=== PATIENT | female | born 1985 | race Caucasian/White ===

== ENCOUNTER → 2016-08-04 | Outpatient (REF) | payer OTHER | LOC: M LAB REF 13:16 | PROVIDERS: ATTEND Obstetrics & Gynecology | DX: O30.042 Twin pregnancy, dichorionic/diamniotic, second trimester (principal); Z36 Encounter for antenatal screening of mother; Z3A.14 14 weeks gestation of pregnancy ==

== ENCOUNTER → 2016-10-31 | Outpatient (CLI) | payer OTHER ==
[2016-10-31 19:35] LABS: MEAN CORPUSCULAR HEMOGLOBIN 32.7 pg (27.0-33.0); MEAN CORPUSCULAR HGB CONC 33.9 g/dl (32.0-36.5); MEAN CORPUSCULAR VOLUME 96.3 fl (80.0-96.0); RED CELL DISTRIBUTION WIDTH 12.8 % (11.5-14.5)
== END ==
LOC: M LAB 15:02
PROVIDERS: ATTEND Obstetrics & Gynecology
DX: Z36 Encounter for antenatal screening of mother (principal); Z3A.00 Weeks of gestation of pregnancy not specified

== ENCOUNTER → 2016-11-11 | Outpatient (REF) | payer OTHER ==
[2016-11-11 12:54] LABS: MEAN CORPUSCULAR HEMOGLOBIN 32.5 pg (27.0-33.0); MEAN CORPUSCULAR HGB CONC 33.9 g/dl (32.0-36.5); MEAN CORPUSCULAR VOLUME 95.9 fl (80.0-96.0); RED CELL DISTRIBUTION WIDTH 13.3 % (11.5-14.5)
== END ==
LOC: M LAB REF 12:22
PROVIDERS: ATTEND Obstetrics & Gynecology
DX: D69.6 Thrombocytopenia, unspecified (principal)

== ENCOUNTER → 2016-12-01 | Outpatient (REF) | payer OTHER ==
[2016-12-01 16:42] LABS: MEAN CORPUSCULAR HGB CONC 34.1 g/dl (32.0-36.5); MEAN CORPUSCULAR VOLUME 96.6 fl (80.0-96.0); RED CELL DISTRIBUTION WIDTH 13.3 % (11.5-14.5); WHITE BLOOD COUNT 11.8 K/mm3 (4.0-10.0)
== END ==
LOC: M LAB REF 16:12
PROVIDERS: ATTEND Obstetrics & Gynecology
DX: O30.043 Twin pregnancy, dichorionic/diamniotic, third trimester (principal); O99.89 Other specified diseases and conditions complicating pregnancy, childbirth and the puerperium; D69.6 Thrombocytopenia, unspecified; Z3A.00 Weeks of gestation of pregnancy not specified

== ENCOUNTER → 2017-01-01 | Outpatient (CLI) | payer OTHER ==
[~2017-01-01] VITALS: Ht 157.5 cm; Wt 90.0 kg
[~2017-01-01] MED LIST: ANTA500C PO; DOCU100T8 PO; IBUP-1114 PO; IRON50TA PO; PRENTAB55 PO
[2017-01-01 20:01] VITALS: BP 120/76
--- NOTE | 2017-01-01 21:40 | REPUSA ---
OBSTETRICAL ULTRASOUND INDICATION: OB screening, decreased movement. FINDINGS: A twin live intrauterine gestation was identified. Diamniotic, dichorionic gestation is not ed. Amniotic fluid index is grossly within normal limits. Normal breathing movements, mo vements, and tone are appreciated within both pregnancies. Umbilical artery resistive index is within normal limits bilaterally. A fundal placenta is noted, grade 1 for both pregnancies. There i s no evidence of placenta previa. Cervix is closed. Twin A .The fetus was in a vertex lie. Estimated weight is 2858 g. The cranium and ventricles are unremarkable. Posterior fossa is within normal limits. The spine demonstrates normal contour and appearance. The orbits, facial anatomy, nasal anatomy, and lip s are normal in appearance. All 4 extremities appear grossly unremarkable. A four-chamber heart is ap preciated. The stomach, kidneys, bladder, and diaphragm are intact. A three-vessel umbilical co rd with normal cord insertion is appreciated. BIOMETRIC MEASUREMENTS TWIN A BPD 8.8 cm HC 32.1 cm AC 32.7 cm FL 56.9 cm Twin B The fetus was in a vertex lie. Estimated weight is 2953 g. The cranium and ventricles are unremarkable. Posterior fossa is within normal limits. The spine demonstrates normal contour and appearance. The orbits, facial anatomy, nasal anatomy, and lip s are normal in appearance. All 4 extremities appear grossly unremarkable. A four-chamber heart is ap preciated. The stomach, kidneys, bladder, and diaphragm are intact. A three-vessel umbilical co rd with normal cord insertion is appreciated. BIOMETRIC MEASUREMENTS TWIN A BPD 8.8 cm HC 32.5 cm AC 33.4 cm FL 6.8 cm IMPRESSION: 1. Diamniotic, dichorionic twin pregnancies as described. 2. Fetus A measures 36 weeks 1 day, demonstrating appropriate growth. 3. Fetus B measures 36 weeks, demonstrate appropriate growth. 4. anatomy is within normal limits bilaterally. 5. Biophysical profile of both fetuses measures 02/07.
== END ==
LOC: M LDO 19:52
PROVIDERS: ATTEND Advanced Practice Midwife
DX: O36.8130 Decreased fetal movements, third trimester, not applicable or unspecified (principal); O30.043 Twin pregnancy, dichorionic/diamniotic, third trimester; Z3A.36 36 weeks gestation of pregnancy

== ENCOUNTER 2017-01-06 13:22 | Inpatient (IN) | payer OTHER ==
[~2017-01-06] VITALS: Ht 157.5 cm; Wt 89.0 kg
[2017-01-06] VITALS (29 sets, daily range): BP systolic 91–124; BP diastolic 51–74
[~2017-01-06 13:22] MED LIST changes: -IBUP-1114 PO
[2017-01-06] MEDS ORDERED: LACTATED RINGER'S 1000 ML IV STA (13:34)
[2017-01-06] MEDS ORDERED: LR 1,000 ML IV SCH (13:34)
[2017-01-06 14:28] LABS: MEAN CORPUSCULAR HEMOGLOBIN 32.8 pg (27.0-33.0); MEAN CORPUSCULAR HGB CONC 34.8 g/dl (32.0-36.5); MEAN CORPUSCULAR VOLUME 94.3 fl (80.0-96.0); WHITE BLOOD COUNT 10.7 K/mm3 (4.0-10.0)
[2017-01-06 14:51] LABS: ALT/SGPT 21 U/L (12-78); AST/SGOT 32 U/L (15-37); BILIRUBIN,TOTAL 0.4 MG/DL (0.2-1.0); CREATININE FOR GFR 1.06 MG/DL (0.55-1.02); GLOMERULAR FILTRATION RATE > 60.0 (>60); URIC ACID 5.5 MG/DL (2.6-6.0)
[2017-01-06] MEDS ORDERED: FENTANYL 2MCG/ML ROPIVACAINE 0.2% IN 0.9% NACL 200ML IVBAG As Ordered ONE (15:22)
[2017-01-06 15:52] LABS: MEAN CORPUSCULAR HEMOGLOBIN 33.2 pg (27.0-33.0); MEAN CORPUSCULAR HGB CONC 35.1 g/dl (32.0-36.5); MEAN CORPUSCULAR VOLUME 94.6 fl (80.0-96.0); RED CELL DISTRIBUTION WIDTH 13.1 % (11.5-14.5); WHITE BLOOD COUNT 12.4 K/mm3 (4.0-10.0)
[2017-01-06] MEDS ORDERED: EPIDURAL COMMENT XX SCH (17:00)
[2017-01-06] MEDS ORDERED: LACTATED RINGER'S 1000 ML IV PRN (17:00)
[2017-01-06] MEDS ORDERED: FENTANYL/ROPIVACAINE/NACL BAG 200 ML EPIDURAL SCH (17:00)
[2017-01-06] MEDS ORDERED: REFRIGERATOR IV KEYS XX PRN (17:00)
[2017-01-06] MEDS ORDERED: ONDANSETRON 4MG/2ML VIAL (J2405) IV PRN ×4 (17:00→20:30)
[2017-01-06] MEDS ORDERED: diphenhydrAMINE INJ 50MG/ML VIAL (J1200) IV PRN (17:00)
[2017-01-06] MEDS ORDERED: EPIDURAL/PCA KEYS XX PRN (17:00)
[2017-01-06] MEDS ORDERED: NALOXONE INJ 0.4 MG/1 ML VIAL (J2310) IV PRN ×3 (17:00→19:20)
[2017-01-06] MEDS: ePHEDrine SULFATE 25 MG/5 ML(5MG/ML) SYRINGE IV PRN ×3 (17:04→17:26)
[2017-01-06] MEDS ORDERED: OXYTOCIN DRIP 30 UNITS in APPROPRIATE DILUENT 1 EA IV SCH (17:30)
[2017-01-06] MEDS ORDERED: ceFAZolin 1GM INJ (J0690) As Ordered ONE ×2 (19:13→19:36)
[2017-01-06] MEDS ORDERED: fentaNYL 100 MCG/2 ML INJECTION (J3010) As Ordered ONE (19:18)
[2017-01-06] MEDS ORDERED: EPINEPHrine INJ 1 MG/ML 1ML AMP As Ordered ONE (19:18)
[2017-01-06] MEDS ORDERED: LIDOCAINE PRES-FREE 2% 10ML AMP As Ordered ONE (19:18)
[2017-01-06] MEDS ORDERED: METOCLOPRAMIDE INJ 10MG/2ML VIAL (J2765) IV PRN (19:20)
[2017-01-06] MEDS ORDERED: NALBUPHINE HCL 10 MG/ML AMP (J2300) IV PRN (19:20)
[2017-01-06] MEDS ORDERED: KETOROLAC 60 MG/2 ML VIAL (J1885) As Ordered ONE (19:22)
[2017-01-06] MEDS ORDERED: ONDANSETRON 4MG/2ML VIAL (J2405) As Ordered ONE (19:22)
[2017-01-06] MEDS ORDERED: OXYTOCIN 30 UNITS IN 0.9% NaCl 500ML IV BAG (J2590) As Ordered ONE (19:42)
[2017-01-06] MEDS: LR 1,000 ML IV SCH (20:19)
[2017-01-06 20:20] LABS: CORD GAS ABE A -4.6; CORD GAS HCO3 A 22.5 MEQ/L; CORD GAS O2 SAT A 34.6 %; CORD GAS PCO2 A 49.6 mmHg; CORD GAS PH A 7.275 UNITS; CORD GAS PO2 A 19.7 mmHg; CORD GAS SBC A 19.4 MEQ/L
[2017-01-06 20:22] LABS: CORD GAS ABE V -4.5; CORD GAS HCO3 V 20.5 MEQ/L; CORD GAS O2 SAT V 76.1 %; CORD GAS PCO2 V 37.7 mmHg; CORD GAS PH V 7.353 UNITS; CORD GAS SBC V 20.3 MEQ/L; CORD GAS TCO2 V 21.6 MEQ/L
[2017-01-06] MEDS ORDERED: NORCO, ANEXSIA 5/325MG TABLET (HYDROcodone/ACETAMINOPHEN) PO PRN ×2 (20:30)
[2017-01-06] MEDS ORDERED: MEPERIDINE INJ 25 MG/ML VIAL (J2175) IV PRN (20:30)
[2017-01-06] MEDS ORDERED: MOM 30ML SUSPENSION UDC PO PRN (20:30)
[2017-01-06] MEDS ORDERED: RHOGAM 300 MCG (1500 IU) INJ (J2790) IM SCH (20:30)
[2017-01-06] MEDS ORDERED: METHYLERGONOVINE MALEATE 0.2 MG/ML VIAL (J2210) IM PRN (20:30)
[2017-01-06] MEDS ORDERED: fentaNYL 100 MCG/2 ML INJECTION (J3010) IV PRN (20:30)
[2017-01-06] MEDS ORDERED: MEASLES,MUMPS,RUBELLA VACCINE INJ (MMR-II) (90707) SC SCH (20:30)
--- NOTE | 2017-01-06 20:31 | REP ---
Clinical: No preoperative count. Technique: Single portable view of the lower abdomen and pelvis. Findings: No obvious retained foreign body is appreciated. Bowel gas pattern is nonspecific. Presumed Abreu catheter in the bladder. Skeletal structures are intact. Impression: No significant residual foreign body. Signed by Juan M Ray MD 01/06/2017 08:22 P
[2017-01-06 21:04] LABS: MEAN CORPUSCULAR HGB CONC 34.5 g/dl (32.0-36.5); MEAN CORPUSCULAR VOLUME 95.6 fl (80.0-96.0); RED CELL DISTRIBUTION WIDTH 12.9 % (11.5-14.5); WHITE BLOOD COUNT 15.6 K/mm3 (4.0-10.0)
[2017-01-06] MEDS: DOCUSATE SODIUM 100 MG CAP PO SCH (23:22)
[2017-01-07] VITALS (8 sets, daily range): BP systolic 99–124; BP diastolic 53–74
[2017-01-07] MEDS: ceFAZolin SOD 1 GM in D5W MINI-BAG PLUS 50 ML IV SCH ×2 (02:26→11:29)
[2017-01-07] MEDS: LR 1,000 ML IV SCH (04:19)
[2017-01-07] MEDS ORDERED: NS 1,000 ML IV SCH (06:07)
[2017-01-07] MEDS ORDERED: NALOXONE INJ 0.4 MG/1 ML VIAL (J2310) IV PRN (06:15)
[2017-01-07] MEDS ORDERED: EPIDURAL/PCA KEYS XX PRN (06:15)
[2017-01-07] MEDS ORDERED: MORPHINE 1MG/ML IN 0.9% NACL 100ML IV BAG IV PRN (06:15)
[2017-01-07] MEDS ORDERED: diphenhydrAMINE INJ 50MG/ML VIAL (J1200) IV PRN (06:15)
[2017-01-07] MEDS ORDERED: ONDANSETRON 4MG/2ML VIAL (J2405) IV PRN (06:15)
[2017-01-07] MEDS ORDERED: MORPHINE PRES-FREE INJ 10 MG/10 ML VIAL (J2274) As Ordered ONE (06:30)
[2017-01-07] MEDS: IBUPROFEN 800 MG TAB PO SCH ×3 (06:37→20:56)
[2017-01-07 06:52] LABS: MEAN CORPUSCULAR HEMOGLOBIN 33.4 pg (27.0-33.0); MEAN CORPUSCULAR HGB CONC 35.3 g/dl (32.0-36.5); MEAN CORPUSCULAR VOLUME 94.7 fl (80.0-96.0); WHITE BLOOD COUNT 10.5 K/mm3 (4.0-10.0)
--- NOTE | 2017-01-07 08:25 | HPE ---
DATE OF ADMISSION: 01/06/2017 Tata is a 31-year-old female, 2, para 1-0-0-1, with an estimated date of confinement (EDC) of 01/29/2017, estimated gestational age (EGA) 37 weeks' gestation, twins. The patient originally had triplets with one demise earlier on the . In the office today with complaints of contractions. Upon evaluation, she was found to be in labor. At this point a decision was made for admission. Her vaginal examination on admission was 4 cm, 80%, fetus at -2 station in vertex position. The twin B had an unstable lie. Ultrasound done last week shows both fetus at approximately 6 pounds each, within normal limits. laboratory blood type is O positive, rubella immune, hepatitis negative, HIV negative, gonorrhea culture (GC) and chlamydia negative. 1-hour sugar testing was within normal limits. Her group B streptococcus (GBS) is negative. The patient's was complicated by -induced thrombocytopenia. Her platelets went as low as 102 with her most recent platelet being 112. MEDICAL HISTORY: Significant for: 1. Polycystic ovarian syndrome (PCOS). 2. -induced thrombocytopenia. SOCIAL HISTORY: She is . Denies any alcohol, drugs, or cigarette smoking. REVIEW OF SYSTEMS: Unremarkable. FAMILY HISTORY: Significant for pancreatic cancer. MEDICATIONS: - vitamins ALLERGIES: No known drug allergies. PHYSICAL EXAMINATION: HEENT: Grossly within normal limits. Abdomen: Soft, nontender, nondistended. Extremities: No clubbing, cyanosis, or edema. Vaginal examination is 4 cm, 80%, fetus at -3 station in vertex position in unstable lie, currently in an oblique position. The tracing reviewed. Category 1 tracing for both twins. Contractions every 3- 4 minutes. PLATELETS on admission 87. ASSESSMENT: 1. Twin gestation dichorionic-diamniotic (di-di) at 37 weeks in active labor. 2. -induced thrombocytopenia. 3. Vertex with B with an unstable lie, currently in an oblique position. PLAN: Admit the patient to labor and delivery. Routine laboratories sent. The patient and her counseled extensively. Risks and benefits of vaginal delivery versus section discussed. At this point, given that she is a multiparous and the first twin is vertex, will attempt a vaginal delivery with potential external version of the first of the second twin if needed. Pain management also discussed. The patient opted for an epidural. Will consult anesthesia to see if she is a candidate for an epidural. HAIEDR
[2017-01-07] MEDS: FERROUS SULFATE 325MG TAB PO SCH (09:00)
[2017-01-07] MEDS: DOCUSATE SODIUM 100 MG CAP PO SCH ×2 (09:00→20:55)
[2017-01-07] MEDS: PRENATAL VITAMINS CHEWABLE TABLET PO SCH (09:00)
--- NOTE | 2017-01-07 13:43 | RO ---
DATE OF PROCEDURE: 01/06/2017 This report is also combined with a delivery note. Tata is a 31-year-old female with triplet gestation that was reduced to a twin gestation earlier on. She presented to labor and delivery in active labor. She progressed to fully dilated, was brought to the operating room with a double setup for delivery of the fetus. She delivered twin A in left occiput anterior position with a nuchal cord times one, scores of 8 and 9, weight 6 pounds 1 ounce. The perineum was found to be intact at that point. Twin B was ruptured with bradycardia down to 59 beats per minute. After placement of an internal monitor, which could not get the heartbeat up, there was noted to have a cord prolapse with a true knot and a right-hand presentation. At this point, a decision was made to proceed with an emergent section. PREOPERATIVE DIAGNOSES: 1. Twin gestation at 37 weeks. 2. Non-reassuring heart rate tracing of twin B with bradycardia after the delivery of twin A. 3. Cord prolapse of twin B, true knot in twin B cord, with a right-hand presentation. POSTOPERATIVE DIAGNOSES: 1. Twin gestation at 37 weeks. 2. Non-reassuring heart rate tracing of twin B with bradycardia after the delivery of twin A. 3. Cord prolapse of twin B, true knot in twin B cord, with a right-hand presentation. PROCEDURE: Emergent primary section via Pfannenstiel incision. SURGEON: Wali Sanders DO DESTINATION COORDINATOR: ANESTHESIA: Epidural. COMPLICATIONS: None. ESTIMATED BLOOD LOSS: 700 mL. FINDINGS: Twin B with a true knot on the cord, scores of 3, 9 and 9. weight 6 pounds 7 ounces. Given the emergency nature of the delivery, we were unable to get cord blood and cord gas. This was taken care of by Dr. Flores, our supervisor tellers. DESCRIPTION OF PROCEDURE: Delivery of twin A and noticing the bradycardia, the patient was transferred immediately to the operating table, Betadine splash was done and an emergent section was performed. With the first knife a skin incision was made. This was carried down to the fascia. Fascia was incised and muscles in a midline fashion. The abdominal cavity entered bluntly. At this point, a low-transverse incision was made. Infant was delivered in an atraumatic fashion. The cord clamped and cut. Infant was handed over to the waiting supervisor tellers. At this point, the placentas were delivered and the incision was then closed using #0 Vicryl in two separate segments. Copiously irrigated with normal saline and suctioned out. Attention was turned to the peritoneum, which was closed in a running fashion using #2-0 Vicryl. Fascia closed in two separate segments of #0 Vicryl suture and the skin was reapproximated in subcuticular fashion using #3-0 Vicryl on a David. A flat plate of the pelvis was done as we were not able to do an initial count. The x-ray was read as within normal limits. No evidence of any instruments left behind. At this point, the patient was then transferred to the recovery room in stable condition. 2 grams of Ancef was given prior to the section. She also received a dose of Methergine in the operating room as well as a Pitocin drip.
[2017-01-08] MEDS: IBUPROFEN 800 MG TAB PO SCH ×3 (04:27→20:09)
[2017-01-08 06:13] VITALS: BP 100/57
[2017-01-08 06:46] LABS: MEAN CORPUSCULAR HEMOGLOBIN 33.3 pg (27.0-33.0); MEAN CORPUSCULAR HGB CONC 34.7 g/dl (32.0-36.5); RED CELL DISTRIBUTION WIDTH 13.1 % (11.5-14.5); WHITE BLOOD COUNT 9.6 K/mm3 (4.0-10.0)
[2017-01-08] MEDS: FERROUS SULFATE 325MG TAB PO SCH (08:52)
[2017-01-08] MEDS: DOCUSATE SODIUM 100 MG CAP PO SCH ×2 (08:52→20:08)
[2017-01-08] MEDS: PRENATAL VITAMINS CHEWABLE TABLET PO SCH (08:52)
[2017-01-08] MEDS ORDERED: PERCOCET 5MG/325MG TAB PO PRN (09:15)
[2017-01-08] MEDS: PERCOCET 5MG/325MG TAB PO PRN ×3 (10:15→23:38)
[2017-01-08 18:00] VITALS: BP 121/63
[2017-01-09] MEDS: IBUPROFEN 800 MG TAB PO SCH (04:20)
[2017-01-09] MEDS: PERCOCET 5MG/325MG TAB PO PRN (05:33)
[2017-01-09 06:12] VITALS: BP 112/54
[2017-01-09] MEDS: FERROUS SULFATE 325MG TAB PO SCH (09:23)
[2017-01-09] MEDS: DOCUSATE SODIUM 100 MG CAP PO SCH (09:23)
[2017-01-09] MEDS: PRENATAL VITAMINS CHEWABLE TABLET PO SCH (09:23)
[2017-01-09] MEDS ORDERED: IBUP-1114 PO (09:54)
--- NOTE | 2017-01-19 17:19 | DS.PDOC ---
Discharge Summary General Date of Admission Jan 06, 2017 at 13:22 Date of Discharge January 09 Attending Physician: Wali Sanders DO Discharge Summary PROCEDURES PERFORMED DURING STAY: Primary low transverse section. ADMITTING DIAGNOSES: 1. Twin gestation, di/di at 37 weeks gestation. 2. -induced thrombocytopenia. 3. Twin A vertex, Twin B with unstable lie-currently Oblique. DISCHARGE DIAGNOSES: 1. Day 3 2. Day 3 postoperative COMPLICATIONS/CHIEF COMPLAINT: LABOR. HISTORY OF PRESENT ILLNESS: Patient is a 31 year-old female who is now a . She was admitted at 37 weeks gestation in active labor with twins. Di/ di twin gestation that were both cephalic at time of delivery. Twin B had been an unstable lie.The patient did have a first trimester demise of one fetus , as she initially had a triplet . The patient arrived to L&D in active labor. She delivered Twin A vaginally with no complications and Twin B descended with her arm/hand as the presenting part along with a cord prolapse and a true knot. A stat section was performed for Twin B. DISCHARGE MEDICATIONS: Please see below. ALLERGIES: Please see below. PHYSICAL EXAMINATION ON DISCHARGE: VITAL SIGNS: Please see below. GENERAL: A+Ox 3. RESPIRATORY EXAMINATION: Respirations regular. No use of accessory muscles. ABDOMINAL EXAMINATION: low transverse abdominal incision is approximated. No erythema or drainage present. PERINEUM: Scant dark red vaginal bleeding. EXTREMITIES: bilateral lower extremities with generalized edema. LABORATORY DATA: Please see below. ACTIVITY: As tolerated. DIET: Regular. DISCHARGE INSTRUCTIONS: 1. Discharge to home. 2. Education on mastitis, endometritis, hemorrhage, DVT, pulmonary embolism, s/sx of infection at the incisional site, pelvic rest, pain management , caring for incision, depression and psychosis. 3. Follow up in 2 weeks and 6 weeks . DISCHARGE CONDITION: Stable. Discharge Medications Scheduled Multivitamins/ ( 19) 1 Tab Tab, 1 TAB PO DAILY, (Reported) Scheduled PRN Ibuprofen (Ibuprofen) 400 Mg Tab, 800 MG PO Q8HP PRN for PAIN, (Reported) Allergies Coded Allergies: Bee Venom (Verified Allergy, Severe, SWELLING, 01/06/17) PORFIRIO RENE CNM Jan 16, 2017 20:55
== END 2017-01-09 11:50 | disposition home or self-care (01) | DRG 765 ==
LOC: M LDI 13:22 → M OBS 22:38
PROVIDERS: ADMIT Advanced Practice Midwife; ATTEND Advanced Practice Midwife
PROC: 10E0XZZ Delivery of Products of Conception, External Approach (ICD-10-PCS; 2017-01-06)
PROC: 10D00Z1 Extraction of Products of Conception, Low, Open Approach (ICD-10-PCS; principal; 2017-01-06 18:47)
DX: O30.043 Twin pregnancy, dichorionic/diamniotic, third trimester (principal); O99.12 Other diseases of the blood and blood-forming organs and certain disorders involving the immune mechanism complicating childbirth; Z37.2 Twins, both liveborn; Z3A.37 37 weeks gestation of pregnancy; O31.21 Continuing pregnancy after intrauterine death of one fetus or more, first trimester; D69.6 Thrombocytopenia, unspecified; Z79.899 Other long term (current) drug therapy; O76 Abnormality in fetal heart rate and rhythm complicating labor and delivery; O69.0XX2 Labor and delivery complicated by prolapse of cord, fetus 2; O64 Obstructed labor due to malposition and malpresentation of fetus; O69.2XX2 Labor and delivery complicated by other cord entanglement, with compression, fetus 2; Z87.891 Personal history of nicotine dependence

== ENCOUNTER → 2017-02-21 | Outpatient (REF) | payer OTHER ==
[~2017-02-21] MED LIST changes: +IBUP-1114 PO
[2017-02-21 14:24] LABS: BASO % 0.9 % (0.0-1.0); EOS # 0.2 K/mm3 (0.0-0.50); EOS % 3.2 % (0.0-3.0); LARGE UNSTAINED CELL # 0.1 K/mm3 (0.0-0.4); LARGE UNSTAINED CELL % 2.1 % (0.0-4.0); LYMPH # 1.9 K/mm3 (1.5-4.5); LYMPH % 33.2 % (24.0-44.0); MEAN CORPUSCULAR HEMOGLOBIN 31.4 pg (27.0-33.0); MEAN CORPUSCULAR VOLUME 95.1 fl (80.0-96.0); MONO # 0.4 K/mm3 (0.0-0.8); MONO % 7.6 % (0.0-5.0); NEUTROPHILS # 2.8 K/mm3 (1.8-7.7); NEUTROPHILS % 52.9 % (36.0-66.0); PLATELET COUNT, AUTOMATED 190 k/mm3 (150-450); RED CELL DISTRIBUTION WIDTH 11.8 % (11.5-14.5); WHITE BLOOD COUNT 5.4 K/mm3 (4.0-10.0)
[2017-02-21 15:03] LABS: LUTEINIZING HORMONE 12.1 mIU/mL
[2017-02-21 15:05] LABS: ESTRADIOL 24.5 PG/ML; FOLLICLE STIMULATING HORMONE 6.8 mIU/mL
[2017-02-21 15:22] LABS: ALBUMIN 3.8 GM/DL (3.2-5.2); ALBUMIN/GLOBULIN RATIO 1.15 (1.00-1.93); ALKALINE PHOSPHATASE 84 U/L (45-117); ALT/SGPT 34 U/L (12-78); ANION GAP 10 MEQ/L (8-16); AST/SGOT 29 U/L (15-37); BILIRUBIN,TOTAL 0.5 MG/DL (0.2-1.0); BLOOD UREA NITROGEN 16 MG/DL (7-18); CALCIUM LEVEL 8.8 MG/DL (8.5-10.1); CARBON DIOXIDE LEVEL 22 MEQ/L (21-32); CHLORIDE LEVEL 110 MEQ/L (98-107); FREE T4 0.92 NG/DL (0.76-1.46); GLOMERULAR FILTRATION RATE > 60.0 (>60); GLUCOSE, FASTING 85 MG/DL (70-105); POTASSIUM SERUM 4.6 MEQ/L (3.5-5.1); SODIUM LEVEL 142 MEQ/L (136-145); TOTAL PROTEIN 7.1 GM/DL (6.4-8.2)
[2017-02-23 14:13] LABS: ESTRONE SERUM 117 pg/mL (.)
== END ==
LOC: M LAB REF 13:47
PROVIDERS: ATTEND Obstetrics & Gynecology
DX: N95.9 Unspecified menopausal and perimenopausal disorder (principal)

== ENCOUNTER → 2021-01-26 | Outpatient (CLI) | payer OTHER ==
[~2021-01-26] MED LIST changes: -ANTA500C PO; +CALC1CHW3 PO
[2021-01-26 13:31] LABS: HEMATOCRIT 39.5 % (36.0-47.0); MEAN CORPUSCULAR HEMOGLOBIN 30.4 pg (27.0-33.0); MEAN CORPUSCULAR HGB CONC 32.9 g/dl (32.0-36.5); MEAN CORPUSCULAR VOLUME 92.3 fl (80.0-96.0); RED BLOOD COUNT 4.28 10^6/uL (4.00-5.40); WHITE BLOOD COUNT 7.9 10^3/uL (4.0-10.0)
[2021-01-26 13:32] LABS: PLATELET COUNT, AUTOMATED 184 10^3/uL (150-450)
[2021-01-26 15:01] LABS: HCG, SERUM QUANTITATIVE 11537 MIU/ML; HEPATITIS B SURFACE ANTIGEN NEGATIVE (NEGATIVE); HEPATITIS C VIRUS ABY INDEX 0.1 INDEX (<0.8); HIV 1&2 SCREEN CENTAUR NEGATIVE (NEGATIVE)
== END ==
LOC: M LAB 12:39
PROVIDERS: ATTEND Obstetrics & Gynecology
DX: Z32.01 Encounter for pregnancy test, result positive (principal)

== ENCOUNTER 2021-02-01 17:48 | Emergency (ER) | payer OTHER ==
[~2021-02-01] VITALS: Ht 157.5 cm; Wt 66.9 kg
[2021-02-01 17:50] VITALS: BP 129/69
[2021-02-01] MEDS ORDERED: LEXA1TAB PO (19:20)
== END 2021-02-02 00:27 | disposition left against medical advice (07) ==
LOC: M ED 17:48
DX: Z53.21 Procedure and treatment not carried out due to patient leaving prior to being seen by health care provider (principal)

== ENCOUNTER → 2021-02-09 | Outpatient (REF) | payer OTHER ==
[~2021-02-09] MED LIST changes: +LEXA1TAB PO
== END ==
LOC: M LAB REF 16:45
PROVIDERS: ATTEND Obstetrics & Gynecology
DX: O02.1 Missed abortion (principal)

== ENCOUNTER → 2022-06-03 | Outpatient (CLI) | payer OTHER ==
[2022-06-03 17:35] LABS: BASO # 0.1 10^3/uL (0.0-0.2); BASO % 0.7 % (0.0-1.0); EOS # 0.2 10^3/uL (0.0-0.5); EOS % 2.5 % (0.0-3.0); HEMATOCRIT 39.8 % (36.0-47.0); HEMOGLOBIN 12.7 g/dl (12.0-15.5); LYMPH # 2.6 10^3/uL (1.5-5.0); LYMPH % 36.6 % (24.0-44.0); MEAN CORPUSCULAR HEMOGLOBIN 29.5 pg (27.0-33.0); MEAN CORPUSCULAR HGB CONC 31.9 g/dl (32.0-36.5); MEAN CORPUSCULAR VOLUME 92.3 fl (80.0-96.0); MONO # 0.8 10^3/uL (0.0-0.8); MONO % 10.5 % (2.0-8.0); NEUTROPHILS # 3.6 10^3/uL (1.5-8.5); NEUTROPHILS % 49.4 % (36.0-66.0); PLATELET COUNT, AUTOMATED 192 10^3/uL (150-450); RED BLOOD COUNT 4.31 10^6/uL (4.00-5.40); WHITE BLOOD COUNT 7.2 10^3/uL (4.0-10.0)
[2022-06-03 18:40] LABS: ALBUMIN 4.1 G/DL (3.2-5.2); ALKALINE PHOSPHATASE 89 U/L (46-116); ALT/SGPT 27 U/L (7.0-40); AST/SGOT 31 U/L (<34); BILIRUBIN,TOTAL 0.3 MG/DL (0.3-1.2); BLOOD UREA NITROGEN 12 MG/DL (9-23); CALCIUM LEVEL 9.4 MG/DL (8.5-10.1); CARBON DIOXIDE LEVEL 27 MMOL/L (20-31); CHLORIDE LEVEL 104 MMOL/L (98-107); CREATININE FOR GFR 0.98 MG/DL (0.55-1.30); GLOMERULAR FILTRATION RATE > 60.0 (>60); GLUCOSE, FASTING 84 MG/DL (60-100); POTASSIUM SERUM 4.2 MMOL/L (3.5-5.1); SODIUM LEVEL 138 MMOL/L (136-145); TOTAL PROTEIN 7.4 G/DL (5.7-8.2)
== END ==
LOC: M WUC 13:19
PROVIDERS: ATTEND Physician Assistant
DX: F41.9 Anxiety disorder, unspecified (principal); F33.1 Major depressive disorder, recurrent, moderate; D64.9 Anemia, unspecified

== ENCOUNTER → 2022-09-22 | Outpatient (CLI) | payer OTHER ==
[2022-09-23 10:21] LABS: DRVV SCREEN 37.2 SEC
[2022-09-24 17:07] LABS: IgG P18 AB Absent (.); IgG P23 AB Absent (.); IgG P28 AB Absent (.); IgG P30 AB Absent (.); IgG P39 AB Absent (.); IgG P41 AB Absent (.); IgG P45 AB Absent (.); IgG P66 AB Absent (.); IgG P93 AB Absent (.); IgM P23 AB Present (.); IgM P39 AB Absent (.); IgM P41 AB Absent (.); LYME IgG WB INTERPRETATION Negative (.); LYME IgM WB INTERPRETATION Negative (.)
== END ==
LOC: M WUC 15:32
PROVIDERS: ATTEND Physician Assistant
DX: M13.0 Polyarthritis, unspecified (principal)

== ENCOUNTER → 2023-08-30 | Outpatient (CLI) | payer OTHER ==
[2023-08-30 13:05] LABS: HEMOGLOBIN 12.7 g/dl (12.0-15.5); MEAN CORPUSCULAR HGB CONC 32.6 g/dl (32.0-36.5); MEAN CORPUSCULAR VOLUME 92.2 fl (80.0-96.0); PLATELET COUNT, AUTOMATED 191 10^3/uL (150-450); RED BLOOD COUNT 4.23 10^6/uL (4.00-5.40); WHITE BLOOD COUNT 7.1 10^3/uL (4.0-10.0)
[2023-08-30 13:34] LABS: ALBUMIN 3.9 G/DL (3.2-5.2); ALKALINE PHOSPHATASE 70 U/L (46-116); ALT/SGPT 22 U/L (7.0-40); AST/SGOT 25 U/L (<34); BILIRUBIN,TOTAL 0.4 MG/DL (0.3-1.2); BLOOD UREA NITROGEN 15 MG/DL (9-23); CALCIUM LEVEL 9.2 MG/DL (8.5-10.1); CARBON DIOXIDE LEVEL 28 MMOL/L (20-31); CHLORIDE LEVEL 106 MMOL/L (98-107); CREATININE FOR GFR 0.96 MG/DL (0.55-1.30); GLOMERULAR FILTRATION RATE > 60.0 (>60); GLUCOSE, FASTING 81 MG/DL (60-100); POTASSIUM SERUM 4.3 MMOL/L (3.5-5.1); SODIUM LEVEL 140 MMOL/L (136-145); TOTAL PROTEIN 6.8 G/DL (5.7-8.2)
== END ==
LOC: M WUC 10:40
PROVIDERS: ATTEND Physician Assistant
DX: D64.9 Anemia, unspecified (principal); E28.2 Polycystic ovarian syndrome; F33.1 Major depressive disorder, recurrent, moderate

== ENCOUNTER → 2025-04-09 | Outpatient (CLI) | payer OTHER ==
[2025-04-09 15:23] LABS: PLATELET COUNT, AUTOMATED 218 10^3/uL (150-450)
[2025-04-09 15:45] LABS: ALT/SGPT 34.0 U/L (7.0-40); AST/SGOT 38.0 U/L (<34); CALCIUM LEVEL 8.7 MG/DL (8.5-10.1); CARBON DIOXIDE LEVEL 24.0 MMOL/L (20-31); CHLORIDE LEVEL 106.0 MMOL/L (98-107); CREATININE FOR GFR 1.0 MG/DL (0.55-1.30); GLOMERULAR FILTRATION RATE 73.0 (>58); POTASSIUM SERUM 4.0 MMOL/L (3.5-5.1); SODIUM LEVEL 140.0 MMOL/L (136-145)
== END ==
LOC: M WUC 11:39
PROVIDERS: ATTEND Physician Assistant
DX: M79.641 Pain in right hand (principal); F33.1 Major depressive disorder, recurrent, moderate; E28.2 Polycystic ovarian syndrome